=== PATIENT | female | born 1965 | race Hispanic/Latino ===

== ENCOUNTER 2018-02-14 15:49 | Emergency (ER) | payer BC ==
[2018-02-14 15:57] VITALS: RESP 18; TEMP 98.2
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
[2018-02-14 17:24] LABS: BASO # 0.02 K/mm3 (0.0-2.0); BASO % 0.2 % (0.0-3.0); EOS # 0.2 (0.0-0.7); GRAN # 5.93 (1.4-6.5); GRAN % 57.8 % (50.0-68.0); HEMOGLOBIN 12.7 g/dL (12.0-16.0); LYMPH # 3.6 (1.2-3.4); LYMPH % 34.8 % (22.0-35.0); MEAN CELL VOLUME 89.1 fl (80.0-105.0); MEAN CORPUSCULAR HEMOGLOBIN 30.1 pg (25.0-35.0); MEAN CORPUSCULAR HGB CONC 33.8 g/dl (31.0-37.0); MEAN PLATELET VOLUME 10.3 fl (7.0-11.0); MONO # 0.5 (0.1-0.6); MONO % 5.2 % (1.0-6.0); RBC 4.22 10^6/uL (3.5-6.1); RED CELL DISTRIBUTION WIDTH 13.2 % (11.5-14.5); WHITE BLOOD COUNT 10.3 10^3/ul (4.5-11.0)
[2018-02-14 17:25] LABS: URINE BILIRUBIN NEGATIVE (NEGATIVE); URINE BLOOD NEGATIVE (NEGATIVE); URINE GLUCOSE (UA) NEGATIVE (NEGATIVE); URINE LEUKOCYTE ESTERASE SMALL Leu/uL (NEGATIVE); URINE PROTEIN NEGATIVE mg/dL (<30 mg/dL); URINE UROBILINOGEN 0.2 E.U./dL (<1 E.U./dL)
[2018-02-14 17:27] LABS: URINE APPEARANCE CLEAR (CLEAR); URINE COLOR COLORLESS (YELLOW)
[2018-02-14 17:32] LABS: INR 0.98; PARTIAL THROMBOPLASTIN TIME 34.6 Seconds (25.1-36.5); PROTHROMBIN TIME 11.2 SECONDS (9.4-12.5); URINE RBC 0 - 2 /hpf (0-2); URINE WBC 0 - 2 /hpf (0-6)
[2018-02-14 17:38] LABS: ALB/GLOB RATIO 1.5 (1.1-1.8); ALBUMIN 4.8 g/dL (3.0-4.8); ALT/SGPT 34 U/L (7-56); AST/SGOT 28 U/L (14-36); BLOOD UREA NITROGEN 18 mg/dL (7-21); GFR AFRICAN-AMERICAN 57; GFR NON-AFRICAN AMERICAN 47
[2018-02-14 17:50] LABS: B-TYPE NATRIURETIC PEPTIDE 258 pg/mL (0-450); TROPONIN I < 0.01 ng/mL
[2018-02-14 19:06] VITALS: PULSE 73; O2SAT 99
[2018-02-14 19:09] VITALS: BP 118/69
--- NOTE | 2018-02-15 09:00 | RAD ---
Date of service: 02/14/2018 HISTORY: Chest pain COMPARISON: Comparison chest dated 03/18/2016. FINDINGS: LUNGS: No active pulmonary disease. PLEURA: No significant pleural effusion identified, no pneumothorax apparent. CARDIOVASCULAR: Normal. OSSEOUS STRUCTURES: No significant abnormalities. VISUALIZED UPPER ABDOMEN: Normal. OTHER FINDINGS: None. IMPRESSION: No active disease.
--- NOTE | 2018-02-15 11:22 | CARD ---
APPROVED REPORT Date of service: 02/14/2018 EKG Measurement Heart [id number] <Conclusion> Normal sinus rhythm Possible Inferior infarct, age undetermined Abnormal ECG
--- NOTE | 2018-02-15 19:58 | US ---
HISTORY: Leg pain and swelling. Evaluate for DVT PHYSICIAN(S): Antonio Larson MD. TECHNIQUE: Duplex sonography and color-flow Doppler with graded compression were used to evaluate the deep venous systems of both lower extremities. FINDINGS: The visualized deep venous systems of both lower extremities are sonographically normal and compressible. Normal wave forms and augmentation are seen. There is no sonographic evidence for deep venous thrombosis in the visualized segments of both lower extremities. There is a large 7.2 x 7.8 cm fluid collection in the right popliteal fossa, consistent with a Melchor's cyst. IMPRESSION: No sonographic evidence for deep venous thrombosis in the visualized segments of both lower extremities.
== END 2018-02-14 19:05 | disposition home or self-care (01) ==
LOC: ED 15:49
DX: R07.9 Chest pain, unspecified (principal); M79.605 Pain in left leg; M79.604 Pain in right leg; F17.210 Nicotine dependence, cigarettes, uncomplicated; E03.9 Hypothyroidism, unspecified; I50.9 Heart failure, unspecified

== ENCOUNTER → 2018-10-06 | Outpatient (CLI) | payer BC | LOC: RAD 13:46 ==